=== PATIENT | female | born 1995 | race Caucasian/White ===

== ENCOUNTER 2019-09-24 21:31 | Emergency (ER) | payer SELFPAY ==
[~2019-09-24] VITALS: Ht 154.9 cm; Wt 49.9 kg
[2019-09-24 21:32] VITALS: BP 109/65
--- NOTE | 2019-09-24 21:35 | NUR ---
TO LOBBY A/W BED AMBULATORY
--- NOTE | 2019-09-24 22:13 | NUR ---
23 YEAR OLD FEMALE COMPLAINS OF LEFT SIDED EYE PAIN SINCE THE MORNING WITH REDNESS. PATIENT ALSO COMPLAINS OF BUMP ON RIGHT SIDE OF NECK AND RASH ON BACK OF NECK THAT IS ON/OFF THAT IS OOZING. PATIENT DENIES CP, SOB, OR ANY OTHER COMPLAINTS. PATIENT AOX4, BREATHING EVEN AND UNLABORED, SKIN WARM AND DRY. BED IN LOWEST POSITION, LOCKED, BED RAIL UPX1. PMH - DENIES ALLERGIES - NKA
--- NOTE | 2019-09-24 23:00 | NUR ---
PATIENT AOX4, BREATHING EVEN AND UNLABORED
[2019-09-25] MEDS: TETRACAINE HCL/PF 0.5% OPTH 4 ML BTL OP ONE (00:29)
[2019-09-25] MEDS: FLUORESCEIN OPTH STRIP 1 MG OP ONE (00:29)
--- NOTE | 2019-09-25 01:06 | NUR ---
PATIENT ALERT AND AWAKE, BREATHING EVEN AND UNLABORED
--- NOTE | 2019-09-25 01:06 | NUR ---
STREP CULTURE OBTAINED AND SENT TO LAB
--- NOTE | 2019-09-25 02:00 | NUR ---
PATIENT ALERT AND AWAKE, BREATHING EVEN AND UNLABORED
[2019-09-25 02:44] LABS: BASOPHILS # (AUTO) 0.1 K/uL (0.00-0.22); BASOPHILS % (AUTO) 0.5 % (0.0-2.0); EOSINOPHILS # (AUTO) 0.3 K/uL (0-0.4); EOSINOPHILS % (AUTO) 2.6 % (0.0-4.0); HEMATOCRIT 36.5 % (36-48); HEMOGLOBIN 12.4 g/dL (12.0-16.0); LYMPHOCYTES % (AUTO) 9.4 % (20.5-51.1); MEAN CORPUSCULAR HEMOGLOBIN 31 pg (27-31); MEAN CORPUSCULAR HGB CONC 34 g/dL (33-37); MEAN CORPUSCULAR VOLUME 90.7 fL (80-94); MONOCYTES # (AUTO) 0.8 K/uL (0.8-1.0); MONOCYTES % (AUTO) 7.6 % (1.7-9.3); NEUTROPHILS # (AUTO) 8.5 K/uL (1.8-7.7); NEUTROPHILS % (AUTO) 79.9 % (42.2-75.2); PLATELET COUNT (AUTO) 235 K/uL (140-450); RED BLOOD CELL COUNT(AUTO) 4.03 MIL/uL (4.20-5.40); RED CELL DISTRIBUTION WIDTH 13.1 % (11.6-13.7); WHITE BLOOD COUNT (AUTO) 10.7 K/uL (4.8-10.8)
[2019-09-25 02:58] LABS: ANION GAP 6.9 (8-16); CARBON DIOXIDE 32.6 mmol/L (21-32); CREATININE 0.6 mg/dL (0.6-1.3); POTASSIUM 3.5 mmol/L (3.5-5.1)
--- NOTE | 2019-09-25 03:00 | NUR ---
PATIENT ALERT AND AWAKE, BREATHING EVEN AND UNLABORED
[2019-09-25] MEDS: NACL 0.9% 1,000 ML IV ONE (03:11)
--- NOTE | 2019-09-25 04:00 | NUR ---
PATIENT ALERT AND AWAKE, BREATHING EVEN AND UNLABORED
[2019-09-25 04:45] VITALS: BP 93/60
--- NOTE | 2019-09-25 04:45 | NUR ---
Patient discharged with v/s stable. Written and verbal after care instructions about viral conjunctivitus of the eye given and explained. Patient alert, oriented and verbalized understanding of instructions. Ambulatory with steady gait. All questions addressed prior to discharge. ID band removed. Patient advised to follow up with PMD. Rx of erythromycin ointment and clobetasol propionate given. Patient educated on indication of medication including possible reaction and side effects. Opportunity to ask questions provided and answered.
== END 2019-09-25 04:45 | disposition home or self-care (01) ==
LOC: MED 21:31
DX: H10.9 Unspecified conjunctivitis (principal); Z88.0 Allergy status to penicillin
CPT/HCPCS: 36415; 70491; 80048; 84702; 85025; 87081; 99285; J7030; Q9967

== ENCOUNTER 2019-09-28 15:32 | Emergency (ER) | payer SELFPAY ==
[~2019-09-28] VITALS: Ht 157.5 cm; Wt 50.3 kg
[2019-09-28 15:36] VITALS: BP 114/59
[2019-09-28] MEDS ORDERED: DEXAMETHASONE 10 MG/ML VIAL IM ONE (16:05)
[2019-09-28] MEDS ORDERED: diphenhydrAMINE 50 MG CAP PO ONE (16:05)
[2019-09-28 16:29] VITALS: BP 114/59
== END 2019-09-28 16:28 | disposition home or self-care (01) ==
LOC: MED 15:32
DX: A38.9 Scarlet fever, uncomplicated (principal); I88.8 Other nonspecific lymphadenitis; Z88.8 Allergy status to other drugs, medicaments and biological substances
CPT/HCPCS: 96372; 99283; J1100; Q0163